=== PATIENT | female | born 1990 | race Caucasian/White ===

== ENCOUNTER 2017-11-20 01:16 | Emergency (ER) | payer BC ==
[~2017-11-20] VITALS: Ht 160 cm; Wt 62.7 kg
[2017-11-20] MEDS ORDERED: MIRENA52 MG IU (01:39)
[2017-11-20] MEDS ORDERED: ZOLOFT 100MG100 MG PO (01:39)
[2017-11-20] MEDS ORDERED: LUPRON DEPOT3.75 M1 (01:40)
[2017-11-20] MEDS ORDERED: KETOROLAC10 MG PO (03:20)
[2017-11-20] MEDS ORDERED: NORCO 325 MG-51 TA1 PO (03:20)
[2017-11-20 03:29] VITALS: BP 140/87
== END 2017-11-20 03:29 | disposition home or self-care (01) ==
LOC: ED 01:16
DX: R10.2 Pelvic and perineal pain (principal); Z87.42 Personal history of other diseases of the female genital tract; R10.32 Left lower quadrant pain; R10.31 Right lower quadrant pain; R11.0 Nausea
CPT/HCPCS: J0595; J1885; J2405

== ENCOUNTER 2018-03-05 16:22 | Emergency (ER) | payer BC ==
[~2018-03-05] VITALS: Ht 160 cm; Wt 63.6 kg
[~2018-03-05 16:22] MED LIST: KETOROLAC10 MG PO; LUPRON DEPOT3.75 M1; MIRENA52 MG IU; NORCO 325 MG-51 TA1 PO; ZOLOFT 100MG100 MG PO
[2018-03-05] MEDS ORDERED: NORETHINDRONE AC5 M1 PO (16:53)
[2018-03-05] MEDS ORDERED: PROBIOTIC1 EAC1 PO (16:54)
[2018-03-05] MEDS ORDERED: NAPROSYN500 M1 PO (16:54)
[2018-03-05] MEDS ORDERED: KLONOPIN 0.5MG0.5 MG PO (16:55)
[2018-03-05] MEDS ORDERED: BUSPIRONE HYDRO10 MG PO (16:55)
[2018-03-05 17:33] LABS: HEMATOCRIT 37.1 % (37.0-47.0); MEAN CELL VOLUME 97 fl (78-100); MEAN CORPUSCULAR HEMOGLOBIN 31 pg (27-31); MEAN CORPUSCULAR HGB CONC 32 g/dL (33-37); MEAN PLATELET VOLUME 10.6 fl (7.4-10.4); PLATELET COUNT 262 K/mm3 (130-400); RED BLOOD COUNT 3.82 M/mm3 (4.10-5.30); WHITE BLOOD COUNT 5.7 K/mm3 (4.8-10.8)
[2018-03-05 17:40] LABS: BUN/CREATININE RATIO 6.6 (6.0-26.0); CALCIUM 8.7 mg/dL (8.4-10.2); POTASSIUM 3.7 mmol/L (3.6-5.0)
[2018-03-05 17:47] LABS: BAND 1 % (0-10); LYMPHOCYTE 23 % (20-51); MONOCYTE 6 % (3-10); NEUTROPHILS 67 % (42-75)
[2018-03-05 18:04] LABS: URINE APPEARANCE CLOUDY; URINE BILIRUBIN NEGATIVE (NEGATIVE); URINE BLOOD 50 ery/uL (NEGATIVE); URINE COLOR YELLOW; URINE GLUCOSE NEGATIVE (NEGATIVE); URINE KETONE NEGATIVE (NEGATIVE); URINE LEUKOCYTE ESTERASE 1+ (NEGATIVE); URINE NITRATE NEGATIVE (NEGATIVE); URINE PROTEIN(semi-quant) TRACE mg/dL (NEGATIVE); URINE UROBILINOGEN NORMAL (NORMAL)
[2018-03-05 18:05] LABS: URINE MUCUS PRESENT (NOT PRESENT)
[2018-03-05] MEDS ORDERED: ZOFRAN ODT4 MG PO (21:33)
[2018-03-05 21:44] VITALS: BP 105/61
== END 2018-03-05 21:44 | disposition home or self-care (01) ==
LOC: ED 16:22
PROVIDERS: Family Medicine
DX: E86.1 Hypovolemia (principal); K52.9 Noninfective gastroenteritis and colitis, unspecified; N39.0 Urinary tract infection, site not specified
CPT/HCPCS: J0595; J1885; J2405; J7030

== ENCOUNTER 2019-07-31 22:08 | Emergency (ER) | payer BC ==
[~2019-07-31] VITALS: Ht 157.5 cm; Wt 60.5 kg
[~2019-07-31 22:08] MED LIST changes: +BUSPIRONE HYDRO10 MG PO; +KLONOPIN 0.5MG0.5 MG PO; +NAPROSYN500 M1 PO; +NORETHINDRONE AC5 M1 PO; +PROBIOTIC1 EAC1 PO; +ZOFRAN ODT4 MG PO
[2019-07-31] MEDS ORDERED: ADDERALL XR10 MG PO (22:34)
[2019-07-31] MEDS ORDERED: BUSPAR 15MG TAB15 MG PO (22:35)
[2019-07-31] MEDS ORDERED: CYCLOBENZ5 MG PO (22:36)
[2019-07-31] MEDS ORDERED: ORILISSA150 MG PO (22:36)
[2019-07-31] MEDS ORDERED: ZOLOFT 100MG100 MG PO (22:37)
[2019-07-31] MEDS ORDERED: ULTRAM50 M1 PO (22:41)
[2019-07-31 23:26] LABS: EOS # 0.3 (0.04-0.40); EOS % 4.1 % (1.0-5.0); HEMATOCRIT 36.3 % (37.0-47.0); HEMOGLOBIN 11.9 g/dL (12.5-16.0); LYMPH# 3.4 (1.50-4.00); MEAN CELL VOLUME 93 fl (78-100); MEAN CORPUSCULAR HEMOGLOBIN 30 pg (27-31); MEAN CORPUSCULAR HGB CONC 33 g/dL (33-37); MEAN PLATELET VOLUME 10.7 fl (7.4-10.4); MONO # 0.5 (0.20-0.80); NEU # 2.9 (1.40-6.50); PLATELET COUNT 274 K/mm3 (130-400); RED BLOOD COUNT 3.92 M/mm3 (4.10-5.30); RED CELL DISTRIBUTION WIDTH 12.2 % (11.5-14.5); WHITE BLOOD COUNT 7.1 K/mm3 (4.8-10.8)
[2019-07-31 23:30] LABS: URINE APPEARANCE CLOUDY; URINE BILIRUBIN NEGATIVE (NEGATIVE); URINE BLOOD NEGATIVE (NEGATIVE); URINE COLOR YELLOW; URINE GLUCOSE NEGATIVE (NEGATIVE); URINE KETONE NEGATIVE (NEGATIVE); URINE LEUKOCYTE ESTERASE NEGATIVE (NEGATIVE); URINE NITRATE NEGATIVE (NEGATIVE); URINE PROTEIN(semi-quant) NEGATIVE (NEGATIVE); URINE UROBILINOGEN NORMAL (NORMAL); URINE WBC 0-1 /hpf (0-3)
[2019-07-31 23:30] LABS: ALBUMIN 4.3 g/dL (3.5-5.0)
[2019-07-31 23:31] LABS: POTASSIUM 3.7 mmol/L (3.5-5.1)
[2019-07-31 23:32] LABS: CALCIUM 9.7 mg/dL (8.3-10.5)
[2019-07-31 23:35] LABS: TOTAL BILIRUBIN 1.2 mg/dL (0.2-1.2)
[2019-08-01] MEDS ORDERED: ONDANSETRON ODT8 MG PO (00:21)
[2019-08-01] MEDS ORDERED: NORCO 325 MG-51 TA1 PO (00:21)
[2019-08-01 01:00] VITALS: BP 117/69
== END 2019-08-01 01:00 | disposition home or self-care (01) ==
LOC: ED 22:08
PROVIDERS: Nurse Practitioner Family
DX: R10.2 Pelvic and perineal pain (principal); F41.9 Anxiety disorder, unspecified; K58.9 Irritable bowel syndrome, unspecified; Z87.42 Personal history of other diseases of the female genital tract; Z90.49 Acquired absence of other specified parts of digestive tract; Z98.890 Other specified postprocedural states
CPT/HCPCS: J0595; J1885; J2405; J3360; J7030

== ENCOUNTER 2021-01-28 20:05 | Emergency (ER) | payer BC ==
[~2021-01-28 20:05] MED LIST changes: +ADDERALL XR10 MG PO; +BUSPAR 15MG TAB15 MG PO; +CYCLOBENZ5 MG PO; +ONDANSETRON ODT8 MG PO; +ORILISSA150 MG PO; +ULTRAM50 M1 PO
[2021-01-28] MEDS ORDERED: CITALOPRAM40 MG PO (20:24)
[2021-01-28] MEDS ORDERED: PRENATAL 19 CH1 EACH PO (20:27)
[2021-01-28 20:40] LABS: EOS # 0.5 (0.04-0.40); EOS % 5.7 % (1.0-5.0); HEMATOCRIT 39.4 % (37.0-47.0); HEMOGLOBIN 13.1 g/dL (12.5-16.0); LYMPH# 3.4 (1.50-4.00); MEAN CELL VOLUME 95 fl (78-100); MEAN CORPUSCULAR HEMOGLOBIN 31 pg (27-31); MEAN CORPUSCULAR HGB CONC 33 g/dL (33-37); MEAN PLATELET VOLUME 10.5 fl (7.4-10.4); MONO # 0.7 (0.20-0.80); NEU # 3.5 (1.40-6.50); PLATELET COUNT 262 K/mm3 (130-400); RED BLOOD COUNT 4.17 M/mm3 (4.10-5.30); RED CELL DISTRIBUTION WIDTH 12.2 % (11.5-14.5); WHITE BLOOD COUNT 8.1 K/mm3 (4.8-10.8)
[2021-01-28 20:52] LABS: ALBUMIN 4.5 g/dL (3.5-5.0); POTASSIUM 4.2 mmol/L (3.5-5.1)
[2021-01-28 20:53] LABS: CALCIUM 9.9 mg/dL (8.3-10.5)
[2021-01-28 20:54] LABS: TOTAL PROTEIN 7.9 g/dL (6.4-8.3)
[2021-01-28 20:56] LABS: TOTAL BILIRUBIN 0.7 mg/dL (0.2-1.2)
[2021-01-28 21:44] LABS: URINE APPEARANCE HAZY; URINE BILIRUBIN NEGATIVE (NEGATIVE); URINE BLOOD NEGATIVE (NEGATIVE); URINE COLOR YELLOW; URINE GLUCOSE NEGATIVE (NEGATIVE); URINE KETONE NEGATIVE (NEGATIVE); URINE NITRATE NEGATIVE (NEGATIVE); URINE PROTEIN(semi-quant) TRACE mg/dL (NEGATIVE); URINE UROBILINOGEN NORMAL (NORMAL)
[2021-01-28 21:50] LABS: URINE LEUKOCYTE ESTERASE NEGATIVE (NEGATIVE); URINE WBC 0-1 /hpf (0-3)
[2021-01-28] MEDS ORDERED: PRILOSEC 20MG20 MG PO (23:00)
[2021-01-28 23:16] VITALS: BP 134/89
== END 2021-01-28 23:16 | disposition home or self-care (01) ==
LOC: ED 20:05
PROVIDERS: Physician Assistant
DX: K52.9 Noninfective gastroenteritis and colitis, unspecified (principal); N80.9 Endometriosis, unspecified; F41.9 Anxiety disorder, unspecified; F32.9 Major depressive disorder, single episode, unspecified; Z88.6 Allergy status to analgesic agent; Z88.8 Allergy status to other drugs, medicaments and biological substances
CPT/HCPCS: J1885; J2060; J2405; J2550; J3010; J7030; Q9967

== ENCOUNTER 2021-01-31 15:47 | Emergency (ER) | payer BC ==
[~2021-01-31 15:47] MED LIST changes: +CITALOPRAM40 MG PO; +PRENATAL 19 CH1 EACH PO; +PRILOSEC 20MG20 MG PO
[2021-01-31 17:15] LABS: EOS # 0.4 (0.04-0.40); EOS % 4.9 % (1.0-5.0); HEMATOCRIT 37.1 % (37.0-47.0); HEMOGLOBIN 12.2 g/dL (12.5-16.0); LYMPH# 2.9 (1.50-4.00); MEAN CELL VOLUME 95 fl (78-100); MEAN CORPUSCULAR HEMOGLOBIN 31 pg (27-31); MEAN CORPUSCULAR HGB CONC 33 g/dL (33-37); MEAN PLATELET VOLUME 10.6 fl (7.4-10.4); MONO # 0.6 (0.20-0.80); NEU # 3.5 (1.40-6.50); PLATELET COUNT 245 K/mm3 (130-400); RED BLOOD COUNT 3.89 M/mm3 (4.10-5.30); RED CELL DISTRIBUTION WIDTH 12.3 % (11.5-14.5); WHITE BLOOD COUNT 7.4 K/mm3 (4.8-10.8)
[2021-01-31 17:23] LABS: URINE APPEARANCE CLEAR; URINE BILIRUBIN NEGATIVE (NEGATIVE); URINE BLOOD TRACE (NEGATIVE); URINE COLOR YELLOW; URINE GLUCOSE NEGATIVE (NEGATIVE); URINE KETONE NEGATIVE (NEGATIVE); URINE LEUKOCYTE ESTERASE NEGATIVE (NEGATIVE); URINE NITRATE NEGATIVE (NEGATIVE); URINE PROTEIN(semi-quant) TRACE mg/dL (NEGATIVE); URINE UROBILINOGEN NORMAL (NORMAL)
[2021-01-31 17:23] LABS: ALBUMIN 4.3 g/dL (3.5-5.0)
[2021-01-31 17:24] LABS: POTASSIUM 4.1 mmol/L (3.5-5.1)
[2021-01-31 17:26] LABS: TOTAL PROTEIN 7.5 g/dL (6.4-8.3)
[2021-01-31 17:28] LABS: TOTAL BILIRUBIN 1.1 mg/dL (0.2-1.2)
[2021-01-31] MEDS ORDERED: ZOFRAN ODT4 MG PO (19:15)
[2021-01-31] MEDS ORDERED: NORCO 325 MG-51 TA1 PO (19:15)
[2021-01-31 20:45] VITALS: BP 116/80
== END 2021-01-31 20:46 | disposition home or self-care (01) ==
LOC: ED 15:47
PROVIDERS: Family Medicine
DX: K52.9 Noninfective gastroenteritis and colitis, unspecified (principal); F41.9 Anxiety disorder, unspecified; Z87.42 Personal history of other diseases of the female genital tract; Z90.89 Acquired absence of other organs; Z88.6 Allergy status to analgesic agent; Z88.8 Allergy status to other drugs, medicaments and biological substances
CPT/HCPCS: J0595; J1885; J2060; J2405; J2550; J3490; J7030

== ENCOUNTER 2021-06-10 19:48 | Emergency (ER) | payer BC ==
[2021-06-10] MEDS ORDERED: FISH OIL 1,2001 EAC4 PO (20:03)
[2021-06-10] MEDS ORDERED: CITALOPRAM40 MG PO (20:03)
[2021-06-10] MEDS ORDERED: MAGNESIUM250 M2 PO (20:04)
[2021-06-10 20:33] LABS: URINE APPEARANCE CLEAR; URINE BILIRUBIN NEGATIVE (NEGATIVE); URINE BLOOD NEGATIVE (NEGATIVE); URINE COLOR YELLOW; URINE GLUCOSE NEGATIVE (NEGATIVE); URINE KETONE NEGATIVE (NEGATIVE); URINE LEUKOCYTE ESTERASE NEGATIVE (NEGATIVE); URINE NITRATE NEGATIVE (NEGATIVE); URINE PROTEIN(semi-quant) NEGATIVE (NEGATIVE); URINE UROBILINOGEN NORMAL (NORMAL); URINE WBC 0 /hpf (0-3)
[2021-06-10 20:41] LABS: BASO # 0.05 (0.02-0.10); EOS # 0.35 (0.04-0.40); EOS % 3.6 % (1.0-5.0); HEMATOCRIT 38.2 % (37.0-47.0); HEMOGLOBIN 12.7 g/dL (12.5-16.0); LYMPH# 3.53 (1.50-4.00); MEAN CELL VOLUME 95 fl (78-100); MEAN CORPUSCULAR HEMOGLOBIN 32 pg (27-31); MEAN CORPUSCULAR HGB CONC 33 g/dL (33-37); MEAN PLATELET VOLUME 10.5 fl (7.4-10.4); MONO # 0.69 (0.20-0.80); NEU # 4.99 (1.40-6.50); PLATELET COUNT 242 K/mm3 (130-400); RED BLOOD COUNT 4.01 M/mm3 (4.10-5.30); RED CELL DISTRIBUTION WIDTH 11.8 % (11.5-14.5); WHITE BLOOD COUNT 9.6 K/mm3 (4.8-10.8)
[2021-06-10 20:52] LABS: ALBUMIN 4.3 g/dL (3.5-5.0)
[2021-06-10 20:53] LABS: POTASSIUM 3.7 mmol/L (3.5-5.1)
[2021-06-10 20:54] LABS: CALCIUM 9.3 mg/dL (8.3-10.5)
[2021-06-10 20:55] LABS: TOTAL PROTEIN 7.1 g/dL (6.4-8.3)
[2021-06-10 20:57] LABS: TOTAL BILIRUBIN 1.2 mg/dL (0.2-1.2)
[2021-06-10 21:12] LABS: CLUE CELLS NOT OBSERVED (Not Observd)
[2021-06-10 22:28] VITALS: BP 107/61
== END 2021-06-10 22:28 | disposition home or self-care (01) ==
LOC: ED 19:48
PROVIDERS: Physician Assistant
DX: N80.9 Endometriosis, unspecified (principal); N73.9 Female pelvic inflammatory disease, unspecified; F41.9 Anxiety disorder, unspecified; Z79.899 Other long term (current) drug therapy
CPT/HCPCS: J0696; J1885; J2060; Q0111

== ENCOUNTER 2021-07-25 19:04 | Emergency (ER) | payer BC ==
[~2021-07-25 19:04] MED LIST changes: +FISH OIL 1,2001 EAC4 PO; +MAGNESIUM250 M2 PO
[2021-07-25] MEDS ORDERED: KETOROLAC10 MG PO (21:51)
[2021-07-25 22:06] VITALS: BP 111/72
== END 2021-07-25 22:06 | disposition home or self-care (01) ==
LOC: ED 19:04
DX: S93.401A Sprain of unspecified ligament of right ankle, initial encounter (principal); F41.9 Anxiety disorder, unspecified; F32.9 Major depressive disorder, single episode, unspecified; Z88.5 Allergy status to narcotic agent; Z88.8 Allergy status to other drugs, medicaments and biological substances; Z79.899 Other long term (current) drug therapy; W10.9XXA Fall (on) (from) unspecified stairs and steps, initial encounter; Y92.009 Unspecified place in unspecified non-institutional (private) residence as the place of occurrence of the external cause
CPT/HCPCS: J1885; L4386